=== PATIENT | female | born 1970 | race Two or more races ===

== ENCOUNTER 2017-04-05 09:40 | Inpatient (IN) | payer SELFPAY ==
[~2017-04-05] VITALS: Ht 172.7 cm; Wt 96.2 kg
[~2017-04-05 09:40] MED LIST: tylenol arthritis PO
[2017-04-05] MEDS ORDERED: KETOROLAC 30 MG/ML VIAL. IV ONE (10:30)
[2017-04-05] MEDS ORDERED: ASPIRIN 81 MG TAB.CHEW PO ONE (10:30)
[2017-04-05] MEDS ORDERED: BENZONATATE 100 MG CAPSULE. PO ONE (10:30)
[2017-04-05 10:36] LABS: BASO % 1 % (0-3); EOS # 0.2 x10^3/uL (0.0-0.7); EOS % 3 % (0-3); HEMOGLOBIN 14.2 g/dL (12.0-15.5); LYMPH # 2.2 x10^3/uL (1.0-4.8); LYMPH % 39 % (24-48); MEAN CORPUSCULAR HEMOGLOBIN 31 pg (25-35); MEAN CORPUSCULAR HGB CONC 35 g/dL (31-37); MEAN CORPUSCULAR VOLUME 90 fL (79-100); MONO # 0.4 x10^3/uL (0.0-1.1); MONO % 7 % (0-9); NEUT # 2.9 x10^3uL (1.8-7.7); NEUT % 51 % (31-73); PLATELET COUNT 170 x10^3/uL (140-400); RED BLOOD COUNT 4.53 x10^6/uL (3.50-5.40); RED CELL DISTRIBUTION WIDTH 12.9 % (11.5-14.5); WHITE BLOOD COUNT 5.8 x10^3/uL (4.0-11.0)
[2017-04-05 10:49] LABS: ALBUMIN 3.8 g/dL (3.4-5.0); ALBUMIN/GLOBULIN RATIO 1.2 (1.0-1.7); CALCIUM 8.7 mg/dL (8.5-10.1); CREATININE 0.9 mg/dL (0.6-1.0); GFR 67.4; POTASSIUM 4.1 mmol/L (3.5-5.1); TOTAL BILIRUBIN 0.5 mg/dL (0.2-1.0)
--- NOTE | 2017-04-05 11:25 | RAD ---
Indication chest discomfort. Cough. PA and lateral views of the chest were obtained. Comparison is made to a study 09/08/2005. The heart and pulmonary vessels appear normal. The lungs are clear. There is no pleural fluid or pneumothorax. The bony structures appear grossly intact. IMPRESSION: No acute or focal process..
--- NOTE | 2017-04-05 12:43 | EKG ---
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
[2017-04-05] MEDS ORDERED: MORPHINE SULFATE 4 MG/ML DISP.SYRIN. IV PRN (12:45)
[2017-04-05] MEDS ORDERED: ONDANSETRON PF 4 MG/2 ML VIAL. IV PRN (12:45)
[2017-04-05 14:37] VITALS: BP 127/93
[2017-04-05] MEDS ORDERED: LISI-334 PO (14:39)
[2017-04-05] MEDS ORDERED: ATOR80TA72 PO (14:39)
[2017-04-05] MEDS ORDERED: METO25TA9 PO (14:39)
[2017-04-05] MEDS ORDERED: ASPI-630 PO (14:41)
[2017-04-05] MEDS ORDERED: BIOT1TAB2 PO (14:41)
[2017-04-05] MEDS ORDERED: OMEG1CAP38 PO (14:41)
[2017-04-05] MEDS ORDERED: DEXT1TAB18 PO (14:42)
--- NOTE | 2017-04-05 14:43 | NUR ---
The patient, DAVID MOORE, 46 y/o, F admitted by LEONIE RICARDO MD, was given written information regarding hospital policies, unit procedures and contact persons. Patient admitted to room 117 from the ED and arrived at approx 1400 via EMS. Valuables were checked and left in room with patient. Vital signs assessed and patient oriented to room.
--- NOTE | 2017-04-05 15:01 | PHYS DOC ---
Past History Past Medical History: GERD, High Cholesterol, Hypertension, NV Past Surgical History: Other Alcohol Use: Occasionally Drug Use: None Adult General Chief Complaint Chief Complaint: CHEST PAIN HPI HPI Patient is a 46 year old female who presents with chest pain. The patient states she has 3 day history of dry cough, shortness of breath, chest pain with coughing & deep breathing that feels like sharp stabbing needles. She denies fevers/chills, lower extremity pain/swelling, nausea, diaphoresis. Reports lightheadedness. She denies previous history of similar pain. She has previous history of NV not requiring cardiac stenting, at [facility]. Takes aspirin 81 mg daily. Also has history of HTN for which she takes metoprolol. Review of Systems Review of Systems Constitutional: Denies fever or chills Eyes: Denies change in visual acuity HENT: Denies nasal congestion or sore throat Respiratory: Reports cough and shortness of breath Cardiovascular: Reports chest pain, denies edema GI: Denies abdominal pain, nausea, vomiting, bloody stools or diarrhea Musculoskeletal: Denies back pain or joint pain Integument: Denies rash or skin lesions Neurologic: Denies headache Current Medications Current Medications Current Medications Medications (Trade) Dose Ordered Sig/Jenny Start Time Stop Time Status Last Admin Dose Admin Aspirin (Children'S Aspirin) 324 mg 1X ONCE 04/05/17 10:30 04/05/17 10:31 DC 04/05/17 10:25 324 MG Benzonatate (Tessalon Perle) 100 mg 1X ONCE 04/05/17 10:30 04/05/17 10:31 DC 04/05/17 10:25 100 MG Ketorolac Tromethamine (Toradol) 30 mg 1X ONCE 04/05/17 10:30 04/05/17 10:31 DC 04/05/17 10:25 30 MG Morphine Sulfate (Morphine 4mg Syringe) 4 mg PRN Q2HR PRN 04/05/17 12:45 04/06/17 12:44 Ondansetron HCl (Zofran) 4 mg PRN Q4HRS PRN 04/05/17 12:45 04/06/17 12:44 Allergies Allergies Allergies Coded Allergies Type Severity Reaction Last Updated Verified acetaminophen Adverse Reaction Unknown 04/05/17 Yes oxycodone Adverse Reaction Unknown 04/05/17 Yes Physical Exam Physical Exam Constitutional: Well developed, well nourished, no acute distress, non-toxic appearance. HENT: Normocephalic, atraumatic, bilateral external ears normal, oropharynx moist, nose normal. Eyes: conjunctiva normal, no discharge. Neck: supple, no stridor. Cardiovascular: Bradycardic, regular, no murmurs, no edema. Lungs & Thorax: LCTAB, no wheezing, no respiratory distress. Abdomen: soft, nontender, nondistended. Skin: Warm, dry, no erythema, no rash. Back: No tenderness. Extremities: No tenderness, no edema. No calf tenderness or swelling Neurologic: Alert and oriented X 3, no focal deficits noted. Psychologic: Affect normal, judgement normal, mood normal. Current Patient Data Vital Signs Vital Signs Date Time Temp Pulse Resp B/P (MAP) Pulse Ox O2 Delivery O2 Flow Rate FiO2 04/05/17 14:37 97.7 47 20 127/93 (104) 100 Room Air Lab Results Laboratory Tests Test 04/05/17 10:10 04/05/17 12:10 04/05/17 13:43 White Blood Count 5.8 x10^3/uL (4.0-11.0) Red Blood Count 4.53 x10^6/uL (3.50-5.40) Hemoglobin 14.2 g/dL (12.0-15.5) Hematocrit 41.0 % (36.0-47.0) Mean Corpuscular Volume 90 fL (79-100) Mean Corpuscular Hemoglobin 31 pg (25-35) Mean Corpuscular Hemoglobin Concent 35 g/dL (31-37) Red Cell Distribution Width 12.9 % (11.5-14.5) Platelet Count 170 x10^3/uL (140-400) Neutrophils (%) (Auto) 51 % (31-73) Lymphocytes (%) (Auto) 39 % (24-48) Monocytes (%) (Auto) 7 % (0-9) Eosinophils (%) (Auto) 3 % (0-3) Basophils (%) (Auto) 1 % (0-3) Neutrophils # (Auto) 2.9 x10^3uL (1.8-7.7) Lymphocytes # (Auto) 2.2 x10^3/uL (1.0-4.8) Monocytes # (Auto) 0.4 x10^3/uL (0.0-1.1) Eosinophils # (Auto) 0.2 x10^3/uL (0.0-0.7) Basophils # (Auto) 0.0 x10^3/uL (0.0-0.2) Sodium Level 141 mmol/L (136-145) Potassium Level 4.1 mmol/L (3.5-5.1) Chloride Level 105 mmol/L (98-107) Carbon Dioxide Level 29 mmol/L (21-32) Anion Gap 7 (6-14) Blood Urea Nitrogen 10 mg/dL (7-20) Creatinine 0.9 mg/dL (0.6-1.0) Estimated GFR (Cockcroft-Gault) 67.4 BUN/Creatinine Ratio 11 (6-20) Glucose Level 113 mg/dL (70-99) H Calcium Level 8.7 mg/dL (8.5-10.1) Total Bilirubin 0.5 mg/dL (0.2-1.0) Aspartate Amino Transferase (AST) 30 U/L (15-37) Alanine Aminotransferase (ALT) 50 U/L (14-59) Alkaline Phosphatase 96 U/L (46-116) Troponin I Quantitative < 0.017 ng/mL (0-0.055) < 0.017 ng/mL (0-0.055) UU-Fyy-Y-Type Natriuretic Peptide 114 pg/mL (0-124) Total Protein 7.0 g/dL (6.4-8.2) Albumin 3.8 g/dL (3.4-5.0) Albumin/Globulin Ratio 1.2 (1.0-1.7) POC Urine HCG, Qualitative hcg negative (Negative) EKG EKG At 1008: Interpreted by me: Sinus bradycardia rate 44, very slight diffuse ST elevations, concave upward, no STEMI, T-wave inversions in aVR and aVL, normal intervals, no ectopy At 1222: Interpreted by me: Sinus bradycardia rate 41, persistent very slight ST elevations which are concave upward, no STEMI, persistent T-wave inversions without ST depression in leads aVR and aVL, normal intervals, no ectopy. [] Radiology/Procedures Radiology/Procedures PROCEDURE: CHEST PA & LATERAL Indication chest discomfort. Cough. PA and lateral views of the chest were obtained. Comparison is made to a study 09/08/2005. The heart and pulmonary vessels appear normal. The lungs are clear. There is no pleural fluid or pneumothorax. The bony structures appear grossly intact. IMPRESSION: No acute or focal process.. DICTATED AND SIGNED BY: LISA ASCENCIO MD DATE: 04/05/17 1117 [] Course & Med Decision Making Course & Med Decision Making Pertinent Labs and Imaging studies reviewed. (See chart for details) The patient presents with chest pain. Gave aspirin on arrival. Obtained labs, EKG, chest x-ray. Symptoms atypical for ACS. EKG shows bradycardia, slightly abnormal but no evidence of STEMI. Obtained repeat labs and EKG. No significant change but she is symptomatic with bradycardia. She does take metoprolol for hypertension. I recommended admission to the hospital for further evaluation and treatment. She agrees with plan of care. Discussed with Dr. Carvajal who recommends okay to have patient stay here at [facility] for admission. He will be here today to consult. Blood pressure stable at this time. Discussed with Dr. Naqvi who agrees to admit to inpatient status. The patient is admitted in stable condition. [] Dragon Disclaimer Dragon Disclaimer This chart was dictated in whole or in part using Voice Recognition software in a busy, high-work load, and often noisy Emergency Department environment. It may contain unintended and wholly unrecognized errors or omissions. Departure Departure: Impression: Primary Impression: Symptomatic bradycardia Additional Impression: Chest pain Disposition: 09 ADMITTED INPATIENT Admitting Physician: Wolfgang Naqvi Condition: STABLE Referrals: PCP,NO (PCP) Problem Qualifiers ARY GONZALEZ MD Apr 05, 2017 15:01
--- NOTE | 2017-04-05 15:17 | EKG ---
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
--- NOTE | 2017-04-05 15:33 | PDOC ---
PROVIDER NOTE PROVIDER NOTE PROVIDER NOTE CARDIOLOGY CONSULT NOTE: CC: Chest pain HPI: 46 y.o woman presenting with very atypical chest pain. Had stress induced CMP at [facility] in january 2017 by history. Today denies any dyspnea. Has chronic cough/allergies. No syncope or palpitations. Chest pain worse with deep breath. No other alleviating or aggravating factors. PMhx: Stress induced CMP HTN Dyslipidemia Socx: No alcohol, tob or illicits. Moving to [place] in 2 weeks. Meds: Lisinopril, toprol, atorvastatin. Med rec pending. ALL: tylenol, oxycodone. ROS: Negative for 07/16 systems reviewed unless otherwise noted above in HPI. Physical Exam: VSS a/ox3. NAD rrr, no m/r/g pulm ctab abd soft, NT/ND 2+ radial/DP pulses. Neuro - non focal. Labs: Negative cardiac enzymes. EKG with sinus bradycardia. Impression: 1. Non-cardiac chest pain. ? Pleurisy. 2. Stress induced CMP 3. HTN/DLP RECS; 1. Continue home meds. 2. Obtain OSH records, if accurate per patient history then ok to dc later today. 3. Advised to f/u with cardiology in [place] for f/u FUENTES DONIS MD Apr 05, 2017 15:33
--- NOTE | 2017-04-05 16:07 | ACF ---
Admission Criteria Forms CHEST PAIN Clinical Indications for Admission to Inpatient Care (Place 'X' for any and all applicable criteria): Admission is indicated for chest pain and ANY ONE of the following(1)(2)(3)(4)(5 ): [ ]I. Angina with acute coronary syndrome (Also use Myocardial Infarction or Angina guideline) [X ]II. Hemodynamic instability [ ]III. Angina needing acute intervention as indicated by ALL of the following( 11)(12): [ ]a) Unstable angina is present as indicated by angina that is ANY ONE of the following: [ ]i) New onset [ ]ii) Nocturnal [ ]iii) Prolonged at rest [ ]iv) Progressive [ ]b) Angina warrants acute intervention as indicated by ANY ONE of the following: [ ]i) Recurrent angina (e.g, not responding as previously to treatment) [ ]ii) Angina at rest or with low-level activities despite initial medical therapy [ ]iii) New or presumably new ST-segment depression on ECG [ ]iv) Signs or symptoms of heart failure (eg, dyspnea, pulmonary edema) [ ]v) New or worsening mitral regurgitation [ ]vi) Hemodynamic instability [ ]vii) Dangerous arrhythmia (eg, sustained ventricular tachycardia) [ ]viii) History of percutaneous coronary intervention within 6 months [ ]ix) History of coronary artery bypass graft surgery [ ]x) RONNELL risk score of 2 or greater[A] [ ]xi) History of Diabetes(14) [ ]xii) High-risk cardiac ischemia findings on noninvasive testing (e.g, echocardiogram, treadmill testing, nuclear scan) [ ]xiii) Chronic renal insufficiency (ie, estimated GFR less than 60 mL/min/1.732m) [ ]xiv) Left ventricular ejection fraction less than 40% [ ]IV. Evidence of ID (eg, cardiac biomarkers positive, ST-segment elevation on ECG) also use Myocardial Infarction Criteria Form. [ ]V. Pulmonary edema [ ]. Respiratory distress [ ]VII. Chest pain indicative of serious diagnosis other than coronary artery disease (eg, aortic dissection) [ ]VIII. Contraindications and/or Inappropriate clinical situations for Observational Care in patients with Chest Pain, when ANY ONE of the following is required: [ ]a) Patient with risk factor for pulmonary embolism, acute coronary syndrome and myocardial infarction (18) [ ]b) Patient with Pulmonary embolism require an average LOS of 4.3 days, therefore emergency department observation management is inappropriate 18,23 [ ]c) Painful condition/s in the elderly, have the highest rate of recidivism after emergency department observation management (10.8%) 20,21,22 [ ]d) Elevated cardiac biomarker requires intensive and exhaustive care (19) [ ]IX. General contraindications and/or Inappropriate clinical situations for Observational Care in patients with Chest Pain, when ANY ONE of the following is required: [ ]a) Prediction of prolongation of LOS based on ANY ONE of the following may be considered as a contraindication for observational care 2, 3, 4, 5, 6, 7, 8, 9, 10, 11 [ ]i) Age > 65 yrs. [ ]ii) Patient arriving by ambulance [ ]iii) Patient with high acuity [ ]iv) Patient requiring vital sign monitoring [ ]v) Patient on IV medication [ ]b) Systolic blood pressures 180mmHg 3,12 [ ]c) Patient with altered mental status including delirium and other alteration of consciousness, (3) [ ]d) Patient whose discharge disposition will be to a retirement home or rehabilitation home should not be managed in Emergency Department Observation Unit. CMS rule requires 3 days hospital stay before such placement. 3,13 [ ]e) Patient with failure to thrive due to broad array of etiologies 3,16,17 [ ]f) Inability to ambulate 3,14 Extended stay beyond goal length of stay may be needed for (1)(28): [ ]a) Specific condition diagnosed after evaluation (eg, pulmonary embolism, aortic dissection) [ ]b) Unstable angina [ ]c) Continued suspicion of acute coronary syndrome with inability to complete needed cardiac evaluation (eg, patient clinically unable to undergo stress testing) [ ]d) Myocardial infarction (Contents from ANGINA and CHEST PAIN clinical indications for admission to inpatient care have been integrated in this form) The original [employer] [facility] content created by [employer] has been revised. The portions of the content which have been revised are identified through the use of italic text or in bold, and [employer] [facility] [employer] has neither reviewed nor approved the modified material. All other unmodified content is copyright [employer] [facility]. Please see references footnoted in the original [employer] [facility] edition 2016 Admission Criteria Met?: Yes LAVINIA BROWN Apr 05, 2017 16:07
--- NOTE | 2017-04-05 17:24 | PDOC1 ---
History of Present Illness Reason for Visit: atypical chest pain History of Present Illness The patient did c/o chest pain cough which is hacking and dry She denied ant fever chills or rigors Chief Complaint: CHEST PAIN Allergies: Coded Allergies: acetaminophen (Verified Adverse Reaction, Unknown, 04/05/17) "makes me crazy" oxycodone (Verified Adverse Reaction, Unknown, 04/05/17) "makes me crazy" Past Medical History Cardiac: CHF, Other (stress induced cardiomyopathy) Pulmonary: No pertinent hx GI: No pertinent hx Heme/Onc: No pertinent hx Psych: No pertinent hx Musculoskeletal: No pertinent hx Rheumatologic: No pertinent hx (cardiac cathterization with normal coronaries and near normal ejection fraction) Review of Systems Review Of Systems Fourteen system , review of systems has been reviewed. See HPI for pertinent positives and negative responses, other batres all other systems are negative, non pertinent or non contributory Respiratory: YES: Cough Cardiovascular: yes: Chest Pain Allergies: Coded Allergies: acetaminophen (Verified Adverse Reaction, Unknown, 04/05/17) "makes me crazy" oxycodone (Verified Adverse Reaction, Unknown, 04/05/17) "makes me crazy" Medications Current Medications Aspirin (Children'S Aspirin) 324 mg 1X ONCE PO Last administered on 04/05/17 10:25; Start 04/05/17 at 10:30; Stop 04/05/17 at 10:31; Status DC Benzonatate (Tessalon Perle) 100 mg 1X ONCE PO Last administered on 04/05/17 10:25; Start 04/05/17 at 10:30; Stop 04/05/17 at 10:31; Status DC Ketorolac Tromethamine (Toradol) 30 mg 1X ONCE IV Last administered on 10:25; Start 04/05/17 at 10:30; Stop 04/05/17 at 10:31; Status DC Ondansetron HCl (Zofran) 4 mg PRN Q4HRS PRN IV NAUSEA/VOMITING; Start 04/05/17 at 12:45; Stop 04/06/17 at 12:44 Morphine Sulfate (Morphine 4mg Syringe) 4 mg PRN Q2HR PRN IV PAIN; Start at 12:45; Stop 04/06/17 at 12:44 Active Scripts Active Reported Coricidin Hbp Flu Tablet (Dextromethorphn/Acetaminoph/Cp) 1 Each Tablet 1 Each PO DAILY PRN Biotin 1 Mg Tablet 1 Mg PO [place] 3 Fish Oil Softgel ([place]-3 Fatty Acids/Fish Oil) 1 Each Capsule.dr 1 Each PO DAILY Aspirin 81 Mg Tab.chew 81 Mg PO DAILY Metoprolol Succinate ( Xl ) (Metoprolol Succinate) 25 Mg Tab.er.24h 25 Mg PO HS LAST DOSE GIVEN: DATE: TIME: NEXT DOSE DUE: DATE: TIME: Atorvastatin Calcium 80 Mg Tablet 80 Mg PO HS LAST DOSE GIVEN: DATE: TIME: NEXT DOSE DUE: DATE: TIME: Lisinopril 20 Mg Tablet 20 Mg PO DAILY LAST DOSE GIVEN: DATE: TIME: NEXT DOSE DUE: DATE: TIME: Exam Vital Signs Vital Signs Date Time Temp Pulse Resp B/P (MAP) Pulse Ox O2 Delivery O2 Flow Rate FiO2 04/05/17 14:50 Room Air 04/05/17 14:37 97.7 47 20 127/93 (104) 100 General Appearance: Alert, Oriented X3, Cooperative, No acute distress HEENT: Atraumatic, PERRLA, EOMI Respiratory: Clear to auscultation Heart: Regular rate, Normal S1, Normal S2 Cardiac: CHF, HTN, hyperipidemia, other (strtess cardiomyopathy) BREASTS: Not examined Abdominal: Normal bowel sounds, Soft, No tenderness Extremities: No clubbing, No cyanosis, No edema Skin: No rashes, No breakdown Neuro: Normal gait, Normal speech, Strength at 5/5 X4 ext, Normal tone, Sensation intact, Cranial nerves 3-12 NL, Reflexes 2+ Psych/Mental Status: Mental status NL, Mood NL Assessment/Plan Assessment/Plan atypical chest pain Two set of cardiac enzymes were negative We got medical records from [facility] which showed that her cardiac catheterization showed normal coronary arteries Her Echo showed near normal EF OF 52% Cardiology team recommended to discharge the patient COURSE Allergies Coded Allergies Type Severity Reaction Last Updated Verified acetaminophen Adverse Reaction Unknown 04/05/17 Yes oxycodone Adverse Reaction Unknown 04/05/17 Yes Laboratory Tests Test 04/05/17 10:10 04/05/17 12:10 04/05/17 13:43 White Blood Count 5.8 x10^3/uL (4.0-11.0) Red Blood Count 4.53 x10^6/uL (3.50-5.40) Hemoglobin 14.2 g/dL (12.0-15.5) Hematocrit 41.0 % (36.0-47.0) Mean Corpuscular Volume 90 fL (79-100) Mean Corpuscular Hemoglobin 31 pg (25-35) Mean Corpuscular Hemoglobin Concent 35 g/dL (31-37) Red Cell Distribution Width 12.9 % (11.5-14.5) Platelet Count 170 x10^3/uL (140-400) Neutrophils (%) (Auto) 51 % (31-73) Lymphocytes (%) (Auto) 39 % (24-48) Monocytes (%) (Auto) 7 % (0-9) Eosinophils (%) (Auto) 3 % (0-3) Basophils (%) (Auto) 1 % (0-3) Neutrophils # (Auto) 2.9 x10^3uL (1.8-7.7) Lymphocytes # (Auto) 2.2 x10^3/uL (1.0-4.8) Monocytes # (Auto) 0.4 x10^3/uL (0.0-1.1) Eosinophils # (Auto) 0.2 x10^3/uL (0.0-0.7) Basophils # (Auto) 0.0 x10^3/uL (0.0-0.2) Sodium Level 141 mmol/L (136-145) Potassium Level 4.1 mmol/L (3.5-5.1) Chloride Level 105 mmol/L (98-107) Carbon Dioxide Level 29 mmol/L (21-32) Anion Gap 7 (6-14) Blood Urea Nitrogen 10 mg/dL (7-20) Creatinine 0.9 mg/dL (0.6-1.0) Estimated GFR (Cockcroft-Gault) 67.4 BUN/Creatinine Ratio 11 (6-20) Glucose Level 113 mg/dL (70-99) Calcium Level 8.7 mg/dL (8.5-10.1) Total Bilirubin 0.5 mg/dL (0.2-1.0) Aspartate Amino Transf (AST/SGOT) 30 U/L (15-37) Alanine Aminotransferase (ALT/SGPT) 50 U/L (14-59) Alkaline Phosphatase 96 U/L (46-116) Troponin I Quantitative < 0.017 ng/mL (0-0.055) < 0.017 ng/mL (0-0.055) SV-Etd-J-Type Natriuretic Peptide 114 pg/mL (0-124) Total Protein 7.0 g/dL (6.4-8.2) Albumin 3.8 g/dL (3.4-5.0) Albumin/Globulin Ratio 1.2 (1.0-1.7) Bedside Urine HCG, Qualitative hcg negative (Negative) Current Medications Medications (Trade) Dose Ordered Sig/Jenny Route PRN Reason Start Time Stop Time Status Last Admin Dose Admin Aspirin (Children'S Aspirin) 324 mg 1X ONCE PO 04/05/17 10:30 04/05/17 10:31 DC 04/05/17 10:25 Benzonatate (Tessalon Perle) 100 mg 1X ONCE PO 04/05/17 10:30 04/05/17 10:31 DC 04/05/17 10:25 Ketorolac Tromethamine (Toradol) 30 mg 1X ONCE IV 04/05/17 10:30 04/05/17 10:31 DC 04/05/17 10:25 Ondansetron HCl (Zofran) 4 mg PRN Q4HRS PRN IV NAUSEA/VOMITING 04/05/17 12:45 04/06/17 12:44 Morphine Sulfate (Morphine 4mg Syringe) 4 mg PRN Q2HR PRN IV PAIN 04/05/17 12:45 04/06/17 12:44 Orders Procedure Category Date Status Time Aspirin (Children's PHA 04/05/17 Complete Aspirin) 10:30 12 Lead Ekg EKG 04/05/17 Resulted 09:56 Chest Pa & Lateral RAD 04/05/17 Resulted 09:56 Cbc W [employer] LAB 04/05/17 Complete 09:56 Comprehensive LAB 04/05/17 Complete Metabolic Panel 09:56 Nt-Pro Bnp LAB 04/05/17 Complete 09:56 Troponin I LAB 04/05/17 Complete 09:56 Insert And Maintain Iv CALI 04/05/17 In Process 09:56 Music [employer] ER 04/05/17 Transmitted 09:56 Continuous Pulse ER 04/05/17 Transmitted Oximetry 09:56 Benzonatate (Tessalon PHA 04/05/17 Complete Perle) 10:30 Ketorolac (Toradol) PHA 04/05/17 Complete 10:30 Troponin I LAB 04/05/17 Complete 11:32 12 Lead Ekg EKG 04/05/17 Complete 11:32 [place] Order ADT 04/05/17 Transmitted 12:43 Code Status CODE 04/05/17 Transmitted 12:43 Vital Signs, Per CALI 04/05/17 In Process Protocol 12:43 Oxygen CALI 04/05/17 In Process 12:43 Cardiac DIET 04/05/17 Transmitted Breakfast Ambulate Ad Sandra CALI 04/05/17 In Process 12:43 Ondansetron Pf PHA 04/05/17 In Process (Zofran) 12:45 Morphine Sulfate PHA 04/05/17 In Process (Morphine 4mg Syringe) 12:45 Consult Physician By CONS 04/05/17 Transmitted Name 12:43 Troponin I LAB 04/05/17 Logged 17:43 Troponin I LAB 04/05/17 Logged 23:43 12 Lead Ekg EKG 04/05/17 Logged 18:00 12 Lead Ekg EKG 04/06/17 Logged 00:00 Admit Orders ADT 04/05/17 Transmitted Vital Signs Date Time Temp Pulse Resp B/P (MAP) Pulse Ox O2 Delivery O2 Flow Rate FiO2 04/05/17 14:50 Room Air 04/05/17 14:37 97.7 47 20 127/93 (104) 100 LEONIE RICARDO MD Apr 05, 2017 17:24
[2017-04-05] MEDS ORDERED: AZIT250T PO (17:26)
[2017-04-05] MEDS ORDERED: METH4TAB2 PO (17:26)
--- NOTE | 2017-04-05 18:10 | NUR ---
Discharge Note: DAVID MOORE [facility] Discharge instructions and discharge home medications reviewed with Patient and a copy given. All questions have been answered and understanding verbalized. The following instructions and handouts were given: MEDICATIONS, FOLLOW UP INSTRUCTIONS, AND EDUCATIONAL HANDOUTS GIVEN. PRESCRIPTIONS GIVEN TO THE PATIENT. Discontinued lines and drains: PERIPHERAL IV DISCONTINUED WITH NO COMPLICATIONS. Patient discharged to HOME with FAMILY via AMBULATION.
== END 2017-04-05 18:12 | disposition home or self-care (01) | DRG 195 ==
LOC: ER 09:40 → 1 SOUTH 12:45
PROVIDERS: ADMIT Internal Medicine; ATTEND Internal Medicine
DX: R09.1 Pleurisy (principal); E78.5 Hyperlipidemia, unspecified; R00.1 Bradycardia, unspecified; I11.0 Hypertensive heart disease with heart failure; I50.9 Heart failure, unspecified; K21.9 Gastro-esophageal reflux disease without esophagitis; E78.00 Pure hypercholesterolemia, unspecified; I25.2 Old myocardial infarction; Z79.82 Long term (current) use of aspirin; Z88.6 Allergy status to analgesic agent; Z88.1 Allergy status to other antibiotic agents
CPT/HCPCS: 36415; 71020; 80053; 81025; 83880; 84484; 85027; 93005; J1885; 99285-25

== ENCOUNTER 2019-04-25 11:06 | Emergency (ER) | payer SELFPAY ==
[~2019-04-25] VITALS: Ht 172.7 cm; Wt 96.2 kg
[~2019-04-25 11:06] MED LIST changes: +ASPI-630 PO; +ATOR80TA72 PO; +AZIT250T PO; +BIOT1TAB2 PO; +DEXT1TAB18 PO; +LISI-334 PO; +METH4TAB2 PO; +METO-239 PO; +OMEG1CAP38 PO
--- NOTE | 2019-04-25 11:29 | PHYS DOC ---
Past History Past Medical History: GERD, High Cholesterol, Hypertension, [place] Past Surgical History: Other Smoking: Non-smoker Alcohol Use: Occasionally Drug Use: None Adult General Chief Complaint Chief Complaint: DIZZY/LIGHT HEADED [facility] HPI Patient is a 48-year-old female presents complaining of chest discomfort that has been waxing and waning for the past several days. Worse this morning. There is a respirophasic component. Patient recently returned from [place], at 9:00 last night. No worsening with exertion. No leg swelling. No trauma. No cough or shortness of breath. No nausea or vomiting. No diaphoresis. Patient reports having a history of previous heart issues but is not currently on any medicines. [] Review of Systems Review of Systems Constitutional: Denies fever or chills [] Eyes: Denies change in visual acuity, redness, or eye pain [] HENT: Denies nasal congestion or sore throat [] Respiratory: Denies cough or shortness of breath [] Cardiovascular: No additional information not addressed in HPI [] GI: Denies abdominal pain, nausea, vomiting, bloody stools or diarrhea [] : Denies dysuria or hematuria [] Musculoskeletal: Denies back pain or joint pain [] Integument: Denies rash or skin lesions [] Neurologic: Denies headache, focal weakness or sensory changes [] Endocrine: Denies polyuria or polydipsia [] All other systems were reviewed and found to be within normal limits, except as documented in this note. Allergies Allergies Allergies Coded Allergies Type Severity Reaction Last Updated Verified acetaminophen Adverse Reaction Unknown 04/05/17 Yes oxycodone Adverse Reaction Unknown 04/05/17 Yes Physical Exam Physical Exam Constitutional: Well developed, well nourished, no acute distress, non-toxic appearance. [] HENT: Normocephalic, atraumatic, bilateral external ears normal, oropharynx moist, no oral exudates, nose normal. [] Eyes: PERRLA, EOMI, conjunctiva normal, no discharge. [] Neck: Normal range of motion, no tenderness, supple, no stridor. [] Cardiovascular:Heart rate regular rhythm, no murmur [] Lungs & Thorax: Bilateral breath sounds clear to auscultation [] Abdomen: Bowel sounds normal, soft, no tenderness, no masses, no pulsatile masses. [] Skin: Warm, dry, no erythema, no rash. [] Back: No tenderness, no CVA tenderness. [] Extremities: No tenderness, no cyanosis, no clubbing, ROM intact, no edema. [] Neurologic: Alert and oriented X 3, normal motor function, normal sensory function, no focal deficits noted. [] Psychologic: Affect normal, judgement normal, mood normal. [] EKG EKG EKG shows a sinus rhythm at 60 bpm, normal axis, normal QTC at 436 ms, no ST elevation. When compared with EKG of 04/05/2017, no acute changes are present.[] Radiology/Procedures Radiology/Procedures PROCEDURE: PORTABLE CHEST 1V EXAM: AP View of the chest DATE: 04/25/2019 11:24 AM INDICATION: Chest pain COMPARISON: 04/05/2017 FINDINGS: The heart is not enlarged. Mediastinal and hilar contours are normal. No focal parenchymal airspace opacity. No pleural effusion or pneumothorax. IMPRESSION: 1. No radiographic evidence for acute cardiopulmonary process.[] Course & Med Decision Making Course & Med Decision Making Pertinent Labs and Imaging studies reviewed. (See chart for details) Course: Patient arrived, was placed in bed, and tolerated exam well. She was transported to and from radiology with any complications. After return lab and imaging studies these were discussed with the patient who voiced understanding. All questions were answered. She was feeling better with the pain medicines administered in the emergency department. She was discharged in improved condition. Medical decision making: There is no evidence of pneumonia, pneumothorax, pulmonary embolism, nor acute coronary syndrome. No esophageal rupture. No dissecting thoracic aneurysm. [] Dragon Disclaimer Dragon Disclaimer This electronic medical record was generated, in whole or in part, using a voice recognition dictation system. Departure Departure: Impression: Primary Impression: Atypical chest pain Disposition: HOME, SELF-CARE Condition: IMPROVED Referrals: PCP,NO (PCP) Patient Instructions: Chest Pain (Nonspecific) Additional Instructions: Follow-up with your regular doctor in 2 days. If you do not have a regular doctor list of local clinics will be provided for you. Return to the ER if worsening pain, difficulty breathing, or any other concerns. Scripts Meloxicam (MELOXICAM) 7.5 Mg Tablet 7.5 MG PO DAILY for PAIN, #20 TAB Prov: JACK HORNE DO 04/25/19 JACK HORNE DO Apr 25, 2019 11:29
--- NOTE | 2019-04-25 11:50 | RAD ---
EXAM: AP View of the chest DATE: 04/25/2019 11:24 AM INDICATION: Chest pain COMPARISON: 04/05/2017 FINDINGS: The heart is not enlarged. Mediastinal and hilar contours are normal. No focal parenchymal airspace opacity. No pleural effusion or pneumothorax. IMPRESSION: 1. No radiographic evidence for acute cardiopulmonary process. Electronically signed by: Alfredo Ponce MD (04/25/2019 11:48 AM) [facility]
[2019-04-25] MEDS ORDERED: ASPIRIN 81 MG TAB.CHEW PO ONE (12:00)
[2019-04-25] MEDS ORDERED: KETOROLAC 15 MG/ML VIAL. IV ONE (12:00)
[2019-04-25 12:03] LABS: BASO % 1 % (0-3); EOS # 0.1 x10^3/uL (0.0-0.7); EOS % 2 % (0-3); HEMATOCRIT 43.9 % (36.0-47.0); HEMOGLOBIN 15.1 g/dL (12.0-15.5); LYMPH # 2.9 x10^3/uL (1.0-4.8); LYMPH % 44 % (24-48); MEAN CORPUSCULAR HEMOGLOBIN 31 pg (25-35); MEAN CORPUSCULAR HGB CONC 34 g/dL (31-37); MEAN CORPUSCULAR VOLUME 89 fL (79-100); MONO # 0.5 x10^3/uL (0.0-1.1); MONO % 7 % (0-9); NEUT # 3.1 x10^3uL (1.8-7.7); NEUT % 47 % (31-73); PLATELET COUNT 245 x10^3/uL (140-400); RED CELL DISTRIBUTION WIDTH 13.3 % (11.5-14.5); WHITE BLOOD COUNT 6.6 x10^3/uL (4.0-11.0)
[2019-04-25 12:08] LABS: BACTERIA,URINE 0 /HPF (0-FEW); BILIRUBIN,URINE NEG (NEG); CLARITY,URINE CLEAR; COLOR,URINE AMBER; GLUCOSE,URINE NEG (NEG); NITRITE,URINE NEG (NEG); RBC,URINE 0 /HPF (0-2); SQUAMOUS EPITHELIAL CELL,UR OCC /LPF; UROBILINOGEN,URINE 0.2 mg/dL (0.2 mg/dL); WBC,URINE 0 /HPF (0-4)
[2019-04-25 12:11] LABS: BARBITURATES NEG (NEG); BENZODIAZEPINES NEG (NEG); CANNABINOIDS POS (NEG); COCAINE NEG (NEG); METHADONE NEG (NEG); OPIATES NEG (NEG); PHENCYCLIDINE NEG (NEG)
[2019-04-25 12:12] LABS: AMPHETAMINE/METHAMPHETAMINE NEG (NEG)
[2019-04-25 12:21] LABS: ALBUMIN 4.4 g/dL (3.4-5.0); ALBUMIN/GLOBULIN RATIO 1.2 (1.0-1.7); CALCIUM 10.2 mg/dL (8.5-10.1); CREATININE 0.7 mg/dL (0.6-1.0); GFR 89.3; MAGNESIUM 1.7 mg/dL (1.8-2.4); POTASSIUM 3.6 mmol/L (3.5-5.1); TOTAL BILIRUBIN 0.6 mg/dL (0.2-1.0)
[2019-04-25] MEDS ORDERED: ONDANSETRON PF 4 MG/2 ML VIAL. IM ONE (12:40)
[2019-04-25] MEDS ORDERED: ONDANSETRON PF 4 MG/2 ML VIAL. IV ONE (12:45)
--- NOTE | 2019-04-25 12:54 | EKG ---
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
[2019-04-25] MEDS ORDERED: MELO7.5T29 PO (13:48)
[2019-04-25 14:11] VITALS: BP 152/86
== END 2019-04-25 14:08 | disposition home or self-care (01) ==
LOC: ER 11:06
DX: R07.89 Other chest pain (principal); K21.9 Gastro-esophageal reflux disease without esophagitis; E78.00 Pure hypercholesterolemia, unspecified; I10 Essential (primary) hypertension; Z88.5 Allergy status to narcotic agent; Z88.6 Allergy status to analgesic agent
CPT/HCPCS: 36415; 71045; 80053; 80307; 81001; 83735; 83880; 84443; 84484; 85025; 85379; 85610; 85730; 93005; 96374; 96375; 99285; J1885; J2405

== ENCOUNTER 2022-02-03 08:37 | Emergency (ER) | payer SELFPAY ==
[~2022-02-03] VITALS: Ht 172.7 cm; Wt 95.0 kg
[~2022-02-03 08:37] MED LIST changes: -LISI-334 PO; +LISI20TA18 PO; +MELO7.5T29 PO
--- NOTE | 2022-02-03 08:56 | PHYS DOC ---
Past History Past Medical History: [place] Past Surgical History: Knee Replacement Additional Past Surgical Histo: ACL REPAIR, CARDIAC CATH BUT NO STENT Smoking: Non-smoker Alcohol Use: None Drug Use: None General Adult EDM: Chief Complaint: CHEST PAIN HPI: HPI: Patient is a 51-year-old female sent in from work for chest pain. 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 States the pain went from an 8 to a 4. States she has had some pains that started in her back and then radiate to the front and are sharp since last night. Says the pain is made worse with certain movements and taking a deep breath. Patient has a history of heart attack in 2018. Patient states she had a cath done, no stents were placed but she was told her heart was "inflamed". Patient states she otherwise has been well. Review of Systems: Review of Systems: All other systems within normal limits except for as noted in the HPI Allergies: Allergies: Allergies Coded Allergies Type Severity Reaction Last Updated Verified acetaminophen Adverse Reaction Unknown 04/05/17 Yes oxycodone Adverse Reaction Unknown 04/05/17 Yes Physical Exam: PE: Constitutional: Well developed, well nourished, no acute distress, non-toxic appearance. [] HENT: Normocephalic, atraumatic, bilateral external ears normal, nose normal. [] Eyes: PERRLA, conjunctiva normal, no discharge. [] Neck: No rigidity, supple, no stridor. [] Cardiovascular: Regular rate and rhythm, brisk cap refill. Symmetric strong radial pulse [] Lungs & Thorax: Non labored symmetric respirations, no tachypnea or respiratory distress. Left chest anteriorly without any reproducible palpation [] Abdomen: Soft, nondistended. Skin: Warm, dry, no erythema, no rash. [] Back: Unremarkable Extremities: No deformities, range of motion grossly intact, no lower extremity edema [] Neurologic: Alert and oriented X 3, no focal deficits noted. [] Psychologic: Affect normal, judgement normal, mood normal. [] Current Patient Data: Vital Signs: Vital Signs Date Time Temp Pulse Resp B/P (MAP) Pulse Ox O2 Delivery O2 Flow Rate FiO2 02/03/22 08:39 98.0 53 18 165/88 (113) 99 Room Air EKG: EKG: Sinus rhythm, heart rate 50 bpm, normal axis, no STEMI, normal intervals, no ectopy. [] Radiology/Procedures: Radiology/Procedures: [][place] [address] IMAGING REPORT Signed PATIENT: DAVID MOORE ACCOUNT: [id number] : 1970 LOCATION: ER AGE: 51 SEX: F EXAM STATUS: PRE ER ORD. PHYSICIAN: CHRIS SCALES MD REASON: chest pain PROCEDURE: PORTABLE CHEST 1V XR CHEST 1V History: Chest pain. Comparison: 04/25/2019 Technique: Portable AP radiograph of the chest. Findings: The lungs are adequately and symmetrically expanded. No airspace consolidation, pleural effusion or pneumothorax. The cardiac mediastinal silhouette and pulmonary vasculature are within normal limits. Osseous structures and soft tissues are unremarkable. Impression: 1. No acute cardiopulmonary process. Electronically signed by: Javier George MD (02/03/2022 9:22 AM) [id number] DICTATED AND SIGNED BY: JAVIER GEORGE MD DATE: 02/03/22920 CC: CHRIS SCALES MD; BRIA AMOR MD ~ Heart Score: C/O Chest Pain: Yes HEART Score for Chest Pain: HEART Score for Chest Pain Response (Comments) Value History Slighlty/Non-Suspicious 0 ECG Normal 0 Age >45 - < 65 1 Risk Factors >3 Risk Factors or Hx CAD 2 Troponin < Normal Limit 0 Total 3 Risk Factors: Risk Factors: DM, Current or recent (<one month) smoker, HTN, HLP, family history of CAD, obesity. Risk Scores: Score 0 - 3: 2.5% MACE over next 6 weeks - Discharge Home Score 4 - 6: 20.3% MACE over next 6 weeks - Admit for Clinical Observation Score 7 - 10: 72.7% MACE over next 6 weeks - Early Invasive Strategies Course & Med Decision Making: Course & Med Decision Making Pertinent Labs and Imaging studies reviewed. (See chart for details) [] Dragon Disclaimer: [email or web address] Disclaimer: This electronic medical record was generated, in whole or in part, using a voice recognition dictation system. Departure Departure: Impression: Primary Impression: Atypical chest pain Disposition: HOME / SELF CARE / HOMELESS Condition: STABLE Referrals: BRIA AMOR MD (PCP) Patient Instructions: Chest Pain (Nonspecific) CHRIS SCALES MD February 03, 2022 08:56
[2022-02-03 09:10] LABS: BASO % 1 % (0-3); CALCIUM 9.1 mg/dL (8.5-10.1); CREATININE 0.7 mg/dL (0.6-1.0); EOS # 0.2 x10^3/uL (0.0-0.7); EOS % 3 % (0-3); GFR 88.2; HEMATOCRIT 41.9 % (36.0-47.0); HEMOGLOBIN 14.4 g/dL (12.0-15.5); LYMPH # 2.1 x10^3/uL (1.0-4.8); LYMPH % 34 % (24-48); MEAN CORPUSCULAR HEMOGLOBIN 31 pg (25-35); MEAN CORPUSCULAR HGB CONC 34 g/dL (31-37); MEAN CORPUSCULAR VOLUME 90 fL (79-100); MONO # 0.4 x10^3/uL (0.0-1.1); MONO % 7 % (0-9); NEUT # 3.5 x10^3uL (1.8-7.7); NEUT % 56 % (31-73); PLATELET COUNT 215 x10^3/uL (140-400); POTASSIUM 4.4 mmol/L (3.5-5.1); RED BLOOD COUNT 4.66 x10^6/uL (3.50-5.40); WHITE BLOOD COUNT 6.2 x10^3/uL (4.0-11.0)
[2022-02-03 09:23] LABS: ALBUMIN/GLOBULIN RATIO 1.5 (1.0-1.7); MAGNESIUM 1.9 mg/dL (1.8-2.4); TOTAL BILIRUBIN 0.5 mg/dL (0.2-1.0); TOTAL PROTEIN 6.7 g/dL (6.4-8.2)
--- NOTE | 2022-02-03 09:24 | RAD ---
XR CHEST 1V History: Chest pain. Comparison: 04/25/2019 Technique: Portable AP radiograph of the chest. Findings: The lungs are adequately and symmetrically expanded. No airspace consolidation, pleural effusion or p neumothorax. The cardiac mediastinal silhouette and pulmonary vasculature are within normal limits. O sseous structures and soft tissues are unremarkable. Impression: 1. No acute cardiopulmonary process. Electronically signed by: Javier August MD (02/03/2022 9:22 AM) [id number]
[2022-02-03 11:34] LABS: CLARITY,URINE CLEAR; COLOR,URINE YELLOW
[2022-02-03 11:35] LABS: BACTERIA,URINE 0 /HPF (0-FEW); GLUCOSE,URINE NEG (NEG); NITRITE,URINE NEG (NEG); RBC,URINE OCC /HPF (0-2); SQUAMOUS EPITHELIAL CELL,UR MANY /LPF; UROBILINOGEN,URINE 0.2 mg/dL (0.2 mg/dL)
--- NOTE | 2022-02-03 11:55 | EKG ---
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
--- NOTE | 2022-02-03 11:56 | EKG ---
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
[2022-02-03 13:10] VITALS: BP 160/73
== END 2022-02-03 13:48 | disposition home or self-care (01) ==
LOC: ER 08:37
DX: R07.89 Other chest pain (principal); I25.2 Old myocardial infarction; Z88.5 Allergy status to narcotic agent; Z88.8 Allergy status to other drugs, medicaments and biological substances
CPT/HCPCS: 36415; 71045; 80053; 81001; 83690; 83735; 83880; 84484; 85025; 85379; 85610; 86140; 93005; 99285